=== PATIENT | male | born 1990 | race African-American/Black ===

== ENCOUNTER 2018-03-06 00:55 | Emergency (ER) | payer BC, OTHER, SELFPAY ==
[2018-03-06 01:02] VITALS: BP 132/79; PULSE 99; RESP 22; TEMP 37.1; O2SAT 92
--- NOTE | 2018-03-06 01:08 | ED.GENADUL_ITS ---
Discharge Plan Disposition Patient Disposition: HOME Condition: Good Discharge Details Chief Complaint: RespSymp Clinical Impression: Upper respiratory infection, acute, Reactive airway disease with wheezing ED Provider: Dario Haynes Home Meds and New Rx's Prescriptions: New prednisone 20 mg tablet 40 mg PO DAILY Qty: 8 RF: 0 albuterol sulfate 90 mcg/actuation HFA aerosol inhaler 2 puff IH Q4H PRN (Reason: shortness of breath or wheezing) Qty: 8.5 RF: 0 No Action No Known Home Meds RF: 0 Discharge Instructions Instructions: Upper Respiratory Infection (ED), Reactive Airways Disease (ED), How to Use a Metered-Dose Inhaler and a Spacer (ED) Additional Instructions: Your chest x-ray is negative, there is no evidence of pneumonia. This is likely viral in nature. You will need to rest and stay hydrated. Use ibuprofen or acetaminophen for fever and for pain. Take prednisone as directed. Use albuterol inhaler every 4 hours for wheezing and shortness of breath. Use this with the spacer. Follow-up with your doctor next week. Return to the emergency department for increasing shortness of breath, mental status changes, new or worsening chest pain, other concerns. Referrals: Primary Care Provider [Outside] Medical Decision Making Patient presenting with febrile respiratory illness. He has diffuse wheezing throughout. Sats are little low. He has tried other patients albuterol inhalers and nebs without relief. He is reporting chest pain only with coughing. We will go ahead and give Tylenol for fever. DuoNeb followed by chest x-ray followed by albuterol. We will also give him prednisone. Reports being diabetic but not on medications. Fingerstick here was fine. Chest x-ray negative per my review as well as preliminary radiology read. After DuoNeb treatment he feels a little bit better. Wheezing seems to be less. Still gets a little winded with exertion. We will give him the albuterol neb. We will need to continue steroids. I do not think he needs antibiotics this is likely viral. Will need to be discharged with albuterol inhaler every 4 hours with spacer. Follow-up with primary care next week. Return to emergency department for increasing shortness of breath, mental status changes, worsening or new chest pain, other concerns. HPI General Mode of arrival: ambulatory . Date/Time Provider Initiated Documentation: 03/06/18 01:01 . Limitations to Documentation: no limitations . Information obtained by: patient . HPI Narrative: Patient presents to ED with complaint of fever, cough, chest pain with cough. Patient has been ill for little over a week. Intermittently has fevers and chills. Cough and shortness of breath has been getting worse. He has chest pain and shoulder pain when he coughs. He has had mild headaches on and off. No body aches per se. No runny nose. He has no abdominal pain or vomiting. He does report loss of appetite and diarrhea. He has been having increasing difficulty breathing and increased coughing for which she comes in for evaluation tonight. Related Data Home Medications Medication Instructions Recorded Confirmed Unknown [No Known Home Meds] 03/06/18 03/06/18 albuterol sulfate 2 puff IH Q4H PRN #8.5 gm 03/06/18 prednisone 40 mg PO DAILY #8 tab 03/06/18 Previous Rx's Medication Instructions Recorded albuterol sulfate 2 puff IH Q4H PRN #8.5 gm 03/06/18 prednisone 40 mg PO DAILY #8 tab 03/06/18 Allergies Allergy/AdvReac Type Severity Reaction Status Date / Time No Known Allergies Allergy Unverified 03/06/18 01:05 General Stated Complaint: RespSymp AUDI: 3 Review of Systems Constitutional Denies body ache(s), Reports chills, Reports fatigue, Reports fever(s), Reports headache(s), Reports malaise, Reports poor appetite and Denies weakness Eyes Denies eye discharge and Denies eye pain ENT Denies vertigo, Denies dizziness, Denies otalgia, Denies facial pain, Reports headache(s), Denies nasal congestion, Denies nasal discharge, Denies neck pain and Denies sore throat Cardiovascular Reports chest pain (only with cough), Denies diaphoresis, Denies syncope, Denies leg edema and Reports dyspnea Respiratory Reports chest congestion, Reports cough, Reports dyspnea and Reports wheezing Gastrointestinal Denies abdominal pain, Reports diarrhea, Denies nausea and Denies vomiting Musculoskeletal Denies back pain, Denies myalgias, Denies neck pain and Denies numbness Integumentary/Breasts Denies rash Neurologic Denies confusion, Denies vertigo, Denies dizziness, Denies syncope, Reports headache(s), Denies focal weakness, Denies numbness and Denies weakness Psychiatric Denies confusion Endocrine Reports fatigue Allergic/Immunologic Reports wheezing PFSH Medical History Diabetes mellitus (Chronic) Asthma (Inactive) Seizure (Inactive) Social History Smoking/Tobacco Use Status: Former Tobacco Use substance use type: marijuana Exam Const General: cooperative, comfortable and no acute distress Orientation: alert and oriented x3 HENMT Head: normocephalic and atraumatic Ears: external ears normal and TM's normal bilaterally General nose exam: no nasal discharge Mouth: oral mucosae normal and oropharynx normal Throat: posterior oropharynx normal Neck Neck: full ROM, trachea midline and supple Resp Effort & Inspection: normal respiratory effort Auscultation: rhonchi (few scattered) and wheezes (diffuse throughout) Cardio Rate: regular rate Rhythm: regular rhythm Heart Sounds: S1 normal and S2 normal Pulses: radial pulses present GI Inspection: normal to inspection Palpation: soft, not firm and nontender Skin General skin exam: no rashes or lesions noted Neuro General: alert, oriented x3, gait normal, no focal motor deficits, CN's II-XI intact bilaterally and not confused Extrem General: normal to inspection, full ROM and no clubbing, cyanosis or edema Course Vital Signs Temperature 98.8 F 03/06/18 01:02 Pulse 99 H 03/06/18 01:02 Respiratory Rate 22 03/06/18 01:02 Blood Pressure 132/79 03/06/18 01:02 Pulse Oximetry 92 L 03/06/18 01:02 Temperature 98.8 F 03/06/18 01:02 Temperature Source Temporal Artery Scan 03/06/18 01:02 Pulse 99 H 03/06/18 01:02 Respiratory Rate 22 03/06/18 01:02 Blood Pressure 132/79 03/06/18 01:02 Blood Pressure Position Supine 03/06/18 01:02 Pulse Oximetry 92 L 03/06/18 01:02 Oxygen Delivery Method Room Air 03/06/18 01:02 Oxygen Flow Rate 0 03/06/18 01:02 Pain Level 8 03/06/18 01:02 Comment 03/06/18 01:02
[2018-03-06] MEDS: Albuterol/Ipratropium 3 ML UPD VIAL UPD (01:30)
[2018-03-06 01:34] VITALS: TEMP 38.9
[2018-03-06] MEDS: predniSONE 20 MG TAB 60 MG PO (01:34)
[2018-03-06] MEDS: Acetaminophen 500 MG TAB 1000 MG PO (01:34)
[2018-03-06] MEDS: Albuterol 2.5 MG/3 ML INH SOLN VIAL 5 MG UPD (01:35)
--- NOTE | 2018-03-06 01:41 | DI.RAD_ITS ---
SYMPTOM/DIAGNOSIS: COUGH, WHEEZE PA AND LATERAL CHEST: There are no prior comparison exams. The lungs are not well inflated on either view but appear clear. The heart size is normal. No pneumothorax is seen. IMPRESSION: Negative chest x-ray.
--- NOTE | 2018-03-06 01:45 | DI.VRAD_ITS ---
EXAM: XR Chest, 2 Views EXAM DATE/TIME: 03/06/2018 1:21 AM CLINICAL HISTORY: 27 years old, male; Signs and symptoms; Shortness of breath and wheezing TECHNIQUE: XR of the chest, 2 views. COMPARISON: No relevant prior studies available. FINDINGS: Lungs: Unremarkable. No consolidation. Pleural space: Unremarkable. No evidence of pneumothorax. Heart/Mediastinum: Unremarkable. Heart size within normal limits for technique. Bones/joints: Unremarkable. IMPRESSION: No acute findings. Dictated and Authenticated by: Tom Faust MD. Ordering:MARGRET Bishop MD
[2018-03-06] MEDS: Albuterol HFA 8 GM 60 PUFF INH IH (02:21)
[2018-03-06] MEDS: Inhaler, Assist Device 1 EACH MC (02:21)
[2018-03-06 02:26] VITALS: BP 129/70; PULSE 81; RESP 18; TEMP 38.9; O2SAT 95
== END 2018-03-06 02:02 | disposition home or self-care (01) ==
PROVIDERS: Emergency Provider Emergency Medicine
DX: R50.9 Fever, unspecified (principal); R07.9 Chest pain, unspecified; J06.9 Acute upper respiratory infection, unspecified; J45.909 Unspecified asthma, uncomplicated; E11.9 Type 2 diabetes mellitus without complications; Z79.4 Long term (current) use of insulin
CPT/HCPCS: 36415; 36416; 82962; 94640; 99284; 71046; 99285; J7512; J7613; J7620

== ENCOUNTER 2021-11-12 10:32 | Outpatient (REF) | payer MEDICAID, SELFPAY ==
[2021-11-13 09:07] LABS: HBs Antibody, Quant 3.3 mIU/mL (See Note); Hepatitis B Surface Ab Negative (See Note)
[2021-11-13 09:48] LABS: Hepatitis C Ab w Rflx HCV PCR Negative (Negative)
[2021-11-13 10:00] LABS: HIV-1/2 Ag & Ab Screen Negative (Negative)
[2021-11-13 10:05] LABS: Hepatitis B Surface Ag Negative (Negative)
[2021-11-13 12:10] LABS: Syphilis Serology (RPR) Negative (Negative)
[2021-11-13 14:44] LABS: Chlamydia Result Negative (Negative); GC Result Negative (Negative)
== END 2021-11-12 10:33 | disposition home or self-care (01) ==
LOC: LBN 10:32
PROVIDERS: Visit Provider Nurse Practitioner Family
DX: Z11.3 Encounter for screening for infections with a predominantly sexual mode of transmission (principal)
CPT/HCPCS: 0064U; 86706; 86803; 87340; 87389; 87491; 87591; 86592

== ENCOUNTER 2021-12-16 18:30 | Outpatient (REF) | payer MEDICAID, SELFPAY ==
[2021-12-16 21:45] LABS: ALT 45 U/L (16-63); AST 22 U/L (15-37); Albumin 4.1 g/dL (3.4-5.0); Alkaline Phosphatase 65 U/L (46-116); Anion Gap 10.3 mmol/L (3-11); BUN 10 mg/dL (7-18); Bilirubin, Total 0.5 mg/dL (0.2-1.0); CO2 24.7 mmol/L (21.0-32.0); CREATININE 0.8 mg/dL (0.70-1.30); Calcium 9.3 mg/dL (8.5-10.1); Chloride 106 mmol/L (98-107); Estimated GFR 122.86 (mL/min/1.73m2); Glucose 180 mg/dL (74-106); Potassium 4.4 mmol/L (3.5-5.1); Sodium 141 mmol/L (136-145); Total Protein 7.7 g/dL (6.4-8.2)
== END 2021-12-16 18:31 | disposition home or self-care (01) ==
LOC: LBN 18:30
PROVIDERS: Visit Provider Nurse Practitioner Family
DX: E11.9 Type 2 diabetes mellitus without complications (principal)
CPT/HCPCS: 80053

== ENCOUNTER 2022-03-16 20:43 | Emergency (ER) | payer MEDICAID, SELFPAY ==
[2022-03-16 20:47] VITALS: BP 149/89; PULSE 87; RESP 15; TEMP 36.8; O2SAT 96
[2022-03-16 20:53] VITALS: RESP 15
--- NOTE | 2022-03-16 21:01 | W.ED.GENAD ---
Discharge Plan Disposition Patient Disposition: Home Condition: Stable Discharge Details Clinical Impression: Viral syndrome Primary Care Provider: Unknown,Unknown ED Provider: Lc Harris Home Meds and New Rx's Prescriptions: Continued metformin 500 mg tablet extended release 24 hr 500 mg PO 1XD Label Comments: TAKE 2 TABLETS BY MOUTH EVERY NIGHT prednisone 20 mg tablet 40 mg PO DAILY Qty: 8 0RF albuterol sulfate 90 mcg/actuation HFA aerosol inhaler 2 puff IH Q4H PRN (Reason: shortness of breath or wheezing) Qty: 8.5 0RF Discharge Instructions Instructions: Viral Syndrome (ED) Additional Instructions: Flu, RSV, COVID-negative. Rest, plenty of fluids, [id number] medications as directed for symptomatic control. Please watch for new or worsening symptoms and return to the ER for any concerns. Medical Decision Making 31-year-old gentleman presents for subjective fever, generalized weakness, myalgias that began this morning. Took at home COVID test which was negative. Concerned that he may have COVID. Clinically he appears well, nontoxic. He is afebrile. Examination is benign. Plan to obtain a flu, COVID, RSV swab. I see no indication for additional laboratory values or imaging. COVID, RSV, flu, negative Findings with patient. Likely viral syndrome. No clear indication to initiate antibiotics. We discussed fluids, [id number] treatment Standard discharge and return precautions were provided. Patient understands, is agreeable to this plan, and has no additional questions or concerns upon discharge. This documentation was generated using [employer]lib[employer] dictation system, please disregard any oddities of phrase or misspellings. Medical Records Medical records reviewed: Yes I reviewed the patient's medical records. Lab Data Lab results reviewed: Yes I reviewed the patient's lab results. Labs: Laboratory Tests Range/Units 03/16/22 20:55 COVID-19 Source Nasopharynx SARS-CoV-2 (PCR) (Negative) Negative Influenza Type A (PCR) (Negative) Negative Influenza Type B (PCR) (Negative) Negative RSV (PCR) (Negative) Negative HPI General Mode of arrival: ambulatory. Date/Time Provider Initiated Documentation: 03/16/22 20:43. Limitations to Documentation: no limitations. Information obtained by: patient and family. HPI Narrative: This is a 31-year-old gentleman with a past medical history of diabetes, asthma, fully vaccinated, current smoker, presents to the ER reporting subjective fever, body aches, generalized weakness that began this morning, reports positive COVID contact, concern for potential COVID infection. Reports that he has had COVID multiple times, most recently last April. He took a negative at-home test and it was negative. He denies headache, cough, abdominal pain, skin rash. He did take [id number] medication with mild relief today. Related Data Home Medications Medication Instructions Recorded Confirmed albuterol sulfate 90 mcg/actuation 2 puff inhalation Q4H PRN 03/06/18 03/16/22 aerosol inhaler shortness of breath or wheezing #8.5 grams prednisone 20 mg tablet 40 mg PO DAILY #8 tabs 03/06/18 03/16/22 metformin 500 mg tablet,extended 500 mg PO 1XD 03/16/22 03/16/22 release 24 hr Previous Rx's Medication Instructions Recorded albuterol sulfate 90 mcg/actuation 2 puff inhalation Q4H PRN 03/06/18 aerosol inhaler shortness of breath or wheezing #8.5 grams prednisone 20 mg tablet 40 mg PO DAILY #8 tabs 03/06/18 Allergies Allergy/AdvReac Type Severity Reaction Status Date / Time No Known Allergies Allergy Unverified 03/06/18 01:05 General Stated Complaint: GenMedical AUDI: 4 Review of Systems Constitutional Constitutional: Reports fever(s) (Subjective) and Denies headache(s) ENT Ears, Nose, Mouth, and Throat: Denies headache(s), Denies neck pain and Denies sore throat Cardiovascular Cardiovascular: Denies chest pain and Denies dyspnea Respiratory Respiratory: Denies cough and Denies dyspnea Gastrointestinal Gastrointestinal: Denies abdominal pain, Reports diarrhea, Denies nausea and Denies vomiting Genitourinary Genitourinary: Denies dysuria Musculoskeletal Musculoskeletal: Reports myalgias and Denies neck pain Integumentary/Breasts Skin/Breast: Denies rash Neurologic Neurologic: Denies headache(s) PFSH All Active Problems (Updated 03/16/22 @ 21:51 by DHAVAL Morton) Viral syndrome (Acute) Medical History Asthma reports asthma as child Diabetes mellitus Seizure reports having seizures as child Social History Smoking/Tobacco Use Status: Former Tobacco Use Smoking risk assessment performed?: Yes Drug use: Occasionally Substance use type: marijuana Do you feel safe at home: Yes Do you feel safe in your relationship?: Yes Exam Const General: cooperative, healthy appearing, comfortable and no acute distress Orientation: alert and awake [facility] Head: normal to inspection, normocephalic and atraumatic Ears: external ears normal, TM's normal bilaterally and EAC's normal General nose exam: external nose normal Face and sinus: normal facial exam Mouth: moist mucous membranes Throat: posterior oropharynx normal Eyes General: appearance normal, both eyes and all related structures Conjunctivae: conjunctivae normal Neck Neck: normal visual inspection, full ROM, no lymphadenopathy, no meningeal signs, trachea midline, supple and nontender Resp Effort & Inspection: normal respiratory effort and able to speak in complete sentences Auscultation: clear to auscultation bilaterally Cardio Rate: regular rate Rhythm: regular rhythm GI Palpation: soft, not firm, no guarding and nontender Skin General skin exam: no rashes or lesions noted Neuro General: patient alert, patient awake, moves all extremities and no focal motor deficits Sensory Exam: no sensory deficits noted Psych Appearance: grossly normal Mental Status: mental status grossly normal Course Vital Signs Vital signs: Vital Signs Temperature 36.8 C 03/16/22 20:47 Pulse 87 03/16/22 20:47 Respiratory Rate 15 03/16/22 20:47 Blood Pressure 149/89 H 03/16/22 20:47 Pulse Oximetry 96 03/16/22 20:47 Temperature 36.8 C 03/16/22 20:47 Temperature Source Oral 03/16/22 20:47 Pulse 87 03/16/22 20:47 Respiratory Rate 15 03/16/22 20:53 Respiratory Effort 03/16/22 20:53 Respiratory Depth Normal 03/16/22 20:53 Respiratory Pattern Normal 03/16/22 20:53 Blood Pressure 149/89 H 03/16/22 20:47 Blood Pressure Position Sitting 03/16/22 20:47 Pulse Oximetry 96 03/16/22 20:47 Oxygen Delivery Method Room Air 03/16/22 20:47 Oxygen Flow Rate 0 03/16/22 20:47 Pain Level 2 03/16/22 20:47
[2022-03-16 21:41] LABS: COVID-19 PCR Negative (Negative); Influenza A PCR Negative (Negative); Influenza B PCR Negative (Negative); RSV PCR Negative (Negative)
[2022-03-16 21:42] LABS: Source Nasopharynx
[2022-03-16 21:57] VITALS: BP 142/88; PULSE 88; RESP 16; O2SAT 96
== END 2022-03-16 21:56 | disposition home or self-care (01) ==
PROVIDERS: Emergency Provider Physician Assistant
DX: B34.9 Viral infection, unspecified (principal); E11.9 Type 2 diabetes mellitus without complications; Z20.822 Contact with and (suspected) exposure to COVID-19
CPT/HCPCS: 36416; 82962; 87637; 99282; 99283

== ENCOUNTER 2022-04-08 13:30 | Outpatient (REF) | payer MEDICAID, SELFPAY ==
[2022-04-08 16:01] LABS: Abs Immature Grans 0.01 10^3/uL (0.0-0.06); Absolute Basophil Count 0.02 10^3/uL (0.0-0.2); Absolute Eosinophil Count 0.24 10^3/uL (0.0-0.7); Absolute Lymphocyte Count 3.01 10^3/uL (1.2-3.4); Absolute Monocyte Count 0.43 10^3/uL (0.1-0.8); Basophils % 0.3; Eosinophils % 4.1; HCT 43.5 % (40.0-50.0); HGB 13.8 g/dL (13.5-17.5); Immature Grans % 0.2; Lymphocytes % 51.8; MCH 25.5 pg (27.0-33.0); MCHC 31.7 % (32.0-36.0); MCV 80 fL (80-95); MPV 9.7 fL (8.0-11.0); Monocytes % 7.4; Neutrophils % 36.2; Platelet Count 356 10^3/uL (130-400); RBC 5.42 10^6/uL (4.36-5.78); RDW 13.3 % (11.8-14.1); RDW-SD 38.1 fL; WBC 5.81 10^3/uL (4.4-10.8)
[2022-04-08 16:05] LABS: ESR 18 mm/hr (0-15)
[2022-04-08 16:41] LABS: COMMENT (LAB VIEW ONLY) 251.36 mg/dL; Microalb ug/mg Crea 32.5 ug/mg Cr
[2022-04-08 16:47] LABS: ALT 54 U/L (16-63); AST 19 U/L (15-37); Albumin 3.9 g/dL (3.4-5.0); Alkaline Phosphatase 61 U/L (46-116); Anion Gap 9.4 mmol/L (3-11); BUN 12 mg/dL (7-18); Bilirubin, Total 0.7 mg/dL (0.2-1.0); CO2 26.6 mmol/L (21.0-32.0); CREATININE 0.7 mg/dL (0.70-1.30); Calcium 9.4 mg/dL (8.5-10.1); Chloride 106 mmol/L (98-107); Estimated GFR 127.91 (mL/min/1.73m2); Glucose 112 mg/dL (74-106); Potassium 4.7 mmol/L (3.5-5.1); Sodium 142 mmol/L (136-145); TSH (W/Ref FT4) 0.53 uIU/mL (0.36-3.74); Total Protein 7.5 g/dL (6.4-8.2); Vitamin B12 447 pg/mL (193-986)
[2022-04-08 16:58] LABS: C-Reactive Protein 0.64 mg/dL (0.0-0.3)
== END 2022-04-08 13:31 | disposition home or self-care (01) ==
LOC: NCHCN 13:30
PROVIDERS: PCP Nurse Practitioner Family; Visit Provider Nurse Practitioner Family
DX: E11.9 Type 2 diabetes mellitus without complications (principal); R53.83 Other fatigue; R70.0 Elevated erythrocyte sedimentation rate; R68.89 Other general symptoms and signs
CPT/HCPCS: 80053; 85652; 82043; 82570; 82607; 84443; 85025; 86140

== ENCOUNTER 2022-11-14 17:31 | Outpatient (REF) | payer MEDICAID, SELFPAY ==
[2022-11-17 09:37] LABS: HBs Antibody, Quant 5.2 mIU/mL (See Note); Hepatitis B Surface Ab Negative (See Note)
[2022-11-17 10:00] LABS: Hepatitis B Surface Ag Negative (Negative)
[2022-11-17 10:18] LABS: HSV Type 1 Ab, IgG Positive (Negative); HSV Type 2 Ab, IgG Negative (Negative)
[2022-11-17 10:20] LABS: Syphilis Serology (RPR) Negative (Negative)
[2022-11-17 10:35] LABS: Hepatitis C Ab w Rflx HCV PCR Negative (Negative)
[2022-11-17 10:40] LABS: HIV-1/2 Ag & Ab Screen Negative (Negative)
[2022-11-17 13:32] LABS: Chlamydia Result Negative (Negative); GC Result Negative (Negative)
== END 2022-11-14 17:32 | disposition home or self-care (01) ==
LOC: NCHCN 17:31
PROVIDERS: PCP Nurse Practitioner Family; Visit Provider Nurse Practitioner Family
DX: E11.9 Type 2 diabetes mellitus without complications (principal); F41.8 Other specified anxiety disorders; Z11.3 Encounter for screening for infections with a predominantly sexual mode of transmission; Z11.59 Encounter for screening for other viral diseases
CPT/HCPCS: 86706; 86803; 87340; 87389; 87491; 87591; 86592; 86695; 86696

== ENCOUNTER 2023-02-08 15:01 | Emergency (ER) | payer MEDICAID, SELFPAY ==
[2023-02-08 15:37] VITALS: BP 139/86; PULSE 96; RESP 16; TEMP 37; O2SAT 97
[2023-02-08 16:19] LABS: Source Nasal/Nares
[2023-02-08 16:53] LABS: COVID-19 PCR Negative (Negative)
--- NOTE | 2023-02-08 17:40 | ED.PROG_ITS ---
Date of service: 02/08/23 Time of Service: 17:40 Medical Decision Making Patient presented to the ED requesting a PCR test for COVID for work, endorses cough and fever. Was not seen in an exam room, I ordered a COVID swab from the waiting room which was negative. Patient left without being seen and fully eval uated with a medical screening examination prior to receiving results. Medical Records Medical records reviewed: Yes I reviewed the patient's medical records. Discharge Plan Discharge Details Chief Complaint: GenMedical Primary Care Provider: TONNY LUU ED Provider: Ramses Lam Home Meds and New Rx's Prescriptions: No Action metformin 500 mg tablet extended release 24 hr 500 mg PO 1XD Patient Comments: TAKE 2 TABLETS BY MOUTH EVERY NIGHT albuterol sulfate 90 mcg/actuation HFA aerosol inhaler 2 puff IH Q4H PRN (Reason: shortness of breath or wheezing) Qty: 8.5 0RF
== END 2023-02-08 17:01 | disposition left against medical advice (07) ==
PROVIDERS: Emergency Provider Physician Assistant; PCP Nurse Practitioner Family
DX: Z53.21 Procedure and treatment not carried out due to patient leaving prior to being seen by health care provider (principal)
CPT/HCPCS: 00123; 87635

== ENCOUNTER 2023-02-23 15:33 | Outpatient (REF) | payer MEDICAID, SELFPAY ==
[2023-02-23 15:45] LABS: Anion Gap 8.3 mmol/L (3-11); BUN 12 mg/dL (7-18); CO2 25.7 mmol/L (21.0-32.0); CREATININE 0.8 mg/dL (0.70-1.30); Calcium 9.3 mg/dL (8.5-10.1); Chloride 103 mmol/L (98-107); Glucose 112 mg/dL (74-106); Potassium 3.9 mmol/L (3.5-5.1); Sodium 137 mmol/L (136-145)
[2023-02-23 17:08] LABS: Hemoglobin A1C 6.6 % (<5.7)
== END 2023-02-23 15:34 | disposition home or self-care (01) ==
LOC: NCHCN 15:33
PROVIDERS: PCP Nurse Practitioner Family; Visit Provider Nurse Practitioner Family
DX: E11.9 Type 2 diabetes mellitus without complications (principal)
CPT/HCPCS: 80048; 83036

== ENCOUNTER 2023-03-12 13:11 | Emergency (ER) | payer MEDICAID, SELFPAY ==
[2023-03-12] VITALS (15 sets, daily range): BP systolic 126–141; BP diastolic 65–75; PULSE 70–114; RESP 8–17; TEMP 36.4–37.1; O2SAT 93–96
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
[2023-03-12 13:45] LABS: Abs Immature Grans 0.02 10^3/uL (0.0-0.06); Absolute Basophil Count 0.02 10^3/uL (0.0-0.2); Absolute Eosinophil Count 0.13 10^3/uL (0.0-0.7); Absolute Lymphocyte Count 2.24 10^3/uL (1.2-3.4); Absolute Monocyte Count 0.49 10^3/uL (0.1-0.8); Absolute Neutrophil Count 3.42 10^3/uL (1.2-6.7); Basophils % 0.3; Eosinophils % 2.1; HGB 13.8 g/dL (13.5-17.5); Immature Grans % 0.3; Lymphocytes % 35.4; MCH 25.6 pg (27.0-33.0); MCHC 32.9 % (32.0-36.0); MCV 78 fL (80-95); MPV 8.9 fL (8.0-11.0); Monocytes % 7.8; Neutrophils % 54.1; Platelet Count 337 10^3/uL (130-400); RDW 14.2 % (11.8-14.1); RDW-SD 39.5 fL; WBC 6.32 10^3/uL (4.4-10.8)
[2023-03-12] MEDS: Normal Saline - Diluent 50 ML VIAL IJ (13:58)
[2023-03-12 14:00] LABS: ALT 61 U/L (16-63); AST 27 U/L (15-37); Albumin 3.8 g/dL (3.4-5.0); Alkaline Phosphatase 63 U/L (46-116); Anion Gap 11.1 mmol/L (3-11); BUN 12 mg/dL (7-18); Bilirubin, Total 0.7 mg/dL (0.2-1.0); CO2 25.9 mmol/L (21.0-32.0); CREATININE 0.8 mg/dL (0.70-1.30); Calcium 9.3 mg/dL (8.5-10.1); Chloride 103 mmol/L (98-107); Glucose 123 mg/dL (74-106); Potassium 4.2 mmol/L (3.5-5.1); Sodium 140 mmol/L (136-145); Total Protein 7.9 g/dL (6.4-8.2)
[2023-03-12] MEDS: Omnipaque 350 MG/ML 100 ML BTL IJ (14:00)
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
[2023-03-12] MEDS: Acetaminophen 325 MG TAB 650 MG PO (14:40)
== END 2023-03-12 14:48 | disposition home or self-care (01) ==
PROVIDERS: Emergency Provider Student in an Organized Health Care Education/Training Program; PCP Nurse Practitioner Family
DX: S20.02XA Contusion of left breast, initial encounter (principal); E11.9 Type 2 diabetes mellitus without complications; Z79.84 Long term (current) use of oral hypoglycemic drugs; Z87.891 Personal history of nicotine dependence; V49.9XXA Car occupant (driver) (passenger) injured in unspecified traffic accident, initial encounter
CPT/HCPCS: 36415; 74177; 80053; 82962; 86850; 86900; 86901; 99285; 70450; 71260; 72125; 85025; 99284; J3490

== ENCOUNTER 2023-05-07 14:22 | Outpatient (REF) | payer MEDICAID, SELFPAY ==
[2023-05-07 23:42] LABS: HIV-1/2 Ag & Ab Screen Negative (Negative)
[2023-05-08 11:02] LABS: Syphilis Serology (RPR) Negative (Negative)
[2023-05-08 14:08] LABS: Chlamydia Result Negative (Negative); GC Result Negative (Negative)
== END 2023-05-07 14:23 | disposition home or self-care (01) ==
LOC: NCHCN 14:22
PROVIDERS: PCP Nurse Practitioner Family; Visit Provider Nurse Practitioner Family
DX: Z11.59 Encounter for screening for other viral diseases (principal)
CPT/HCPCS: 87389; 87491; 87591; 86592

== ENCOUNTER 2023-08-06 15:11 | Outpatient (REF) | payer MEDICAID, SELFPAY ==
[2023-08-10 12:55] LABS: Chlamydia Result Negative (Negative); GC Result Negative (Negative)
== END 2023-08-06 15:12 | disposition home or self-care (01) ==
LOC: NCHCN 15:11
PROVIDERS: PCP Nurse Practitioner Family; Visit Provider Nurse Practitioner Family
DX: Z11.3 Encounter for screening for infections with a predominantly sexual mode of transmission (principal)
CPT/HCPCS: 87491; 87591